=== PATIENT | male | born 1945 | race Caucasian/White ===

== ENCOUNTER 2019-06-07 11:32 | Emergency (ER) | payer BC, MEDICARE ==
[2019-06-07] MEDS ORDERED: ACETAMINOPHEN 1,000 MG/100 ML BTL IVPB ONE (11:58)
--- NOTE | 2019-06-07 12:07 | Emergency Department Record ---
History of Present Illness - General Chief Complaint: Hypertension Stated Complaint: HIGH BLOOD PRESSURE Time Seen by Provider: 06/07/19 11:45 Source: Patient Mode of Arrival: Ambulatory Limitations: No limitations - History of Present Illness Initial Comments: The patient is here due to his blood pressure running high for the last 3 months. He has been unable to see his PCP or Contracting Specialist for it due to both being in [facility]. The patient states for the last few months the BP has been running 220/120 consistently. He also has had an issue with chronic back pain and was scheduled for a procedure with Dr. Recio today but due to his BP being chronically elevated he was sent to the ER for evaluation. The patient denies any symptoms presently and specifically has had no CP, SOB, EMMA, SHARMA, or visual changes. MD Complaint: Other Onset/Timin -: Month(s) History of Same: Yes Improves With: Nothing Worsens With: Nothing - [place] Coma Scale Eye Response: (4) Open spontaneously Motor Response: (6) Obeys commands Verbal Response: (5) Oriented [place] Total: 15 - Related Data Home Medications Medication Instructions Recorded Confirmed Last Taken Alprazolam [Xanax] 1 mg PO DAILY PRN 06/07/19 06/07/19 06/07/19 Atorvastatin Calcium [Lipitor] 40 mg PO DAILY 06/07/19 06/07/19 06/06/19 Cilostazol 100 mg PO DAILY 06/07/19 06/07/19 06/06/19 Fenofibrate,Micronized 134 mg PO DAILY 06/07/19 06/07/19 06/06/19 [Fenofibrate] Ibuprofen 200 mg PO DAILY 06/07/19 06/07/19 06/06/19 Lisinopril 20 mg PO DAILY 06/07/19 06/07/19 06/07/19 Losartan Potassium 50 mg PO BID 06/07/19 06/07/19 06/07/19 Mirabegron [Myrbetriq] 15 mg PO ASDIR 06/07/19 06/07/19 06/06/19 Allergies Allergy/AdvReac Type Severity Reaction Status Date / Time No Known Drug Allergies Allergy Verified 06/07/19 11:46 Travel Screening - Travel/Exposure Within Last 30 Days Have you traveled within the last 30 days?: No - Travel/Exposure Within Last Year Have you traveled outside the [place] 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 Drug Use: Heavy Drug Use Detail:: Marijuana - RESPIRATORY Hx Respiratory Disorders: Yes Hx Asthma: Yes (USES OLD INHALERS SPORADICALLY) - CARDIOVASCULAR Hx Cardio Disorders: Yes Hx Abnormal EKG: Yes Hx Cardiac Cath: Yes Hx Heart Attack: Yes (AGE 51) Hx Hypertension: Yes (RUNS VERY HIGH W PAIN AND WHEN HE SEES THE DR TOLD TO TAKE B/P MEDS DAY OF) Hx Irregular Heartbeat: Yes ([place] HAS PACEMAKER) Hx Coronary Artery Disease: Yes Hx Coronary Stent: Yes (6-7 STENTS LAST ONE 6 YRS AGO) - NEURO Hx Neuro Disorders: Yes 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) - GI Hx GI Disorders: Yes Hx GI Bleed: Yes (HX OF) Hx Ulcer: Yes (HX OF) - Hx Genitourinary Disorders: Yes Hx Bladder Problem: Yes (FREQUENCY URGENCY) Hx Prostate Problems: Yes (BPH) - ENDOCRINE Hx Endocrine Disorders: No - MUSCULOSKELETAL Hx Musculoskeletal Disorders: Yes Hx Arthritis: Yes - PSYCH Hx Psych Problems: Yes Hx Anxiety: Yes - HEMATOLOGY/ONCOLOGY Hx Hematology/Oncology Disorders: Yes Hx Anemia: Yes (HX OF) Hx Blood Transfusions: Yes Hx Blood Transfusion Reaction: No Family Medical History Any Significant Family History?: No Family Hx Comment (NOT TO BE USED IN PLACE OF ITEMS BELOW): UNKNOWN Physical Exam - General General Appearance: Alert, Oriented x3, Cooperative, No acute distress - Head Head exam: Atraumatic, Normocephalic, Normal inspection - Eye Eye exam: Normal appearance, PERRL, EOMI - ENT Throat exam: Normal inspection. negative: Tonsillar erythema, Tonsillar exudate - Neck Neck exam: Normal inspection, Full ROM. negative: Tenderness - Respiratory Respiratory exam: Normal lung sounds bilaterally. negative: Respiratory distress - Cardiovascular Cardiovascular Exam: Regular rate, Normal rhythm, Normal heart sounds - GI/Abdominal GI/Abdominal exam: Soft, Normal bowel sounds. negative: Tenderness - Extremities Extremities exam: Normal inspection, Full ROM, Normal capillary refill. negative: Tenderness - Neurological Neurological exam: Alert. negative: Motor sensory deficit Course Vital Signs 06/07/19 11:35 Temperature 97.6 F Pulse Rate 73 Respiratory 18 Rate Blood Pressure 188/132 Pulse Ox 97 - Reevaluation(s) Reevaluation #1: The patient is doing very well at this time and denies any problems or symptoms. I did discuss the case with the patient's Contracting Specialist LELO Aaron and she did contact Dr. Gaitan who would like the patient started on Norvasc. Dr. Gaitan did call in the prescription for the patient and we will start him on a dose here. 06/07/19 13:14 Reevaluation #2: The patient is doing a lot better at this time. His BP is now much improved at 183/92 so I do believe he is stable for discharge. He does have the Norvasc called into the pharmacy and we will refer him to a Contracting Specialist here at [facility]. 06/07/19 13:37 Medical Decision Making - Data Complexity MDM Data: Labs Ordered and/or Reviewed, EKG Ordered and/or Reviewed - Lab Data Result diagrams: 06/07/19 12:10 06/07/19 12:10 - EKG Data -: EKG Interpreted by Me EKG: No Acute Changes (Atrial paced with no ischemic changes.) Disposition Disposition: Discharge Clinical Impression: HTN (hypertension) Qualifiers: Hypertension type: unspecified Qualified Code(s): I10 - Essential (primary) hypertension Disposition: Home, Self-Care Condition: (2) Stable Instructions: Hypertension (ED) Additional Instructions: Please continue your regular medicines and add the Norvasc as directed. Please see Dr. Grover next week in the Specialty [facility]. Return to the ER for any problems or new issues. Referrals: [facility] Specialty Clinics [Provider Group] Forms: Patient Portal Access Time of Disposition: 13:40 Quality - Quality Measures Quality Measures: N/A - Blood Pressure Screening View Details: Yes Does Patient Have Any of the Following: Active Dx of HTN Blood Pressure Classification: Hypertensive Reading Systolic Measurement: 183 Diastolic Measurement: 92 Screening for High Blood Pressure: Patient Exclusion, Hx of HTN [[id number]]
[2019-06-07 12:22] LABS: ABSOLUTE NEUTROPHIL COUNT 5.51; BASO % 0.3 % (0-6); EOS % 2.1 % (0-6); GRAN % 70.5 % (47-80); HEMATOCRIT 43.5 % (42.0-52.0); HEMOGLOBIN 14.5 gm/dl (14.0-18.0); LYMPH % 17.6 % (16-45); MEAN CELL VOLUME 93.5 fl (81-97); MEAN CORPUSCULAR HEMOGLOBIN 31.2 pg (27-33); MEAN CORPUSCULAR HGB CONC 33.3 g/dl (32-36); MEAN PLATELET VOLUME 9.4 fl (7.4-10.4); MONO % 9.5 % (0-9); PLATELET COUNT 347 K/uL (130-400); RED BLOOD COUNT 4.65 M/uL (4.40-5.70); RED CELL DISTRIBUTION WIDTH 13.3 % (11.5-14.5); WHITE BLOOD COUNT W/O DIFF 7.8 K/uL (4.2-12.2)
[2019-06-07] MEDS ORDERED: LISINOPRIL 20 MG TABLET PO ONE (12:30)
[2019-06-07 12:34] LABS: BLOOD UREA NITROGEN 17 mg/dL (8-23); CREATININE 0.9 mg/dL (0.7-1.2); EST GLOMERULAR FILTRATION RATE > 60 mL/min
[2019-06-07 12:35] LABS: TOTAL PROTEIN 7.2 g/dL (6.6-8.7)
[2019-06-07 12:37] LABS: GLUCOSE,RANDOM 94 mg/dL (74-109)
[2019-06-07 12:39] LABS: ALB/GLOB RATIO 1.4 (1.1-1.8); ALBUMIN 4.2 g/dL (4.0-5.0); ALKALINE PHOSPHATASE 41 U/L (40-129); ALT/SGPT 11 U/L (<41); AST/SGOT 14 U/L (10.0-50.0)
[2019-06-07] MEDS ORDERED: AMLODIPINE BESYLATE 5MG TAB PO SCH (13:15)
[2019-06-07] MEDS ORDERED: AMLODIPINE BESYLATE 5MG TAB PO ONE (13:15)
== END 2019-06-07 14:00 | disposition home or self-care (01) ==
LOC: ER 11:32
DX: I10 Essential (primary) hypertension (principal); I25.2 Old myocardial infarction; Z95.0 Presence of cardiac pacemaker; Z87.891 Personal history of nicotine dependence; Z01.812 Encounter for preprocedural laboratory examination; M54.16 Radiculopathy, lumbar region
CPT/HCPCS: 80053; 85002; 85025; 85610; 85730; 93005; 93010; 96365; 99284

== ENCOUNTER 2019-07-17 07:02 | Day surgery (SDC) | payer BC, MEDICARE ==
--- NOTE | 2019-07-17 06:43 | History and Physical - Ferro ---
CHIEF COMPLAINT/HISTORY OF CHIEF COMPLAINT: This patient presents with a history of intractable lumbar radiculopathy. On 05/09/19 a spinal cord stimulator trial was conducted with 75-85% pain control. Due to the failure of all therapy and the success of the trial, the patient presents for implantation of a permanent system. PAST MEDICAL HISTORY: Hypertension. PAST SURGICAL HISTORY: List to be provided. MEDICATIONS ON ADMISSION: List to be provided. FAMILY/PSYCHOSOCIAL HISTORY: Social history - Caffeine. Family history - Noncontributory. SYSTEMS REVIEW: The patient is appropriate in no acute distress. The remainder of the systems review is positive for glasses and blood pressure. PHYSICAL EXAMINATION: Height and weight are not known. Vital signs - Blood pressure 148/80. HEENT: Within normal limits. LUNGS: Clear. HEART: Rapid and regular. ABDOMEN: Nontender. MUSCULOSKELETAL: Examination of the musculoskeletal system shows diffuse tenderness throughout the lumbar spine. Range of motion produces pain into both hips and legs. Motor and sensory field function is intact. There is no motor or sensory abnormalities. There is no assistive device used for ambulation. NEUROLOGIC: Cranial nerves are intact. IMPRESSION: LUMBAR RADICULOPATHY, ICD-10 CODE M54.16 AND M54.17. PLAN: Due to the failure of conservative therapy and the success of a stimulator trial, the patient presents today for implantation of a permanent system. The procedure will be considered outpatient although an overnight stay will be evaluated. JOB NUMBER: [id number] MTDD
[~2019-07-17 07:02] MED LIST: ACETAMINOPHEN 1,000 MG/100 ML BTL IVPB ONE; CEFAZOLIN 2 Gram 2 GM/50 ML BAG IVPB ONE; FAMOTIDINE 20MG TABLET PO ONE; MECLIZINE 25 MG TABLET PO ONE; METOCLOPRAMIDE 10 MG TABLET PO ONE
[2019-07-17] MEDS ORDERED: PROPOFOL 10 MG/ML VIAL IV ONE (07:03)
[2019-07-17] MEDS ORDERED: LIDOCAINE 2% MDV (20MG/ML) 20ML VIAL IV ONE (07:03)
[2019-07-17] MEDS ORDERED: MIDAZOLAM HCL 2MG/2ML VIAL IV ONE (07:03)
[2019-07-17] MEDS ORDERED: FENTANYL PF 100MCG/2ML VIAL IV ONE (07:03)
[2019-07-17] MEDS ORDERED: HYDROMORPHONE HCL 2 MG/ML VIAL IV ONE (07:03)
[2019-07-17] MEDS ORDERED: RINGERS SOLUTION,LACTATED 1,000 ML IV ONE ×2 (07:40→09:45)
[2019-07-17] MEDS ORDERED: LIDOCAINE 1% W/EPI 1:100,000 MDV 20 ML VIAL SQ ONE ×2 (09:05)
[2019-07-17] MEDS ORDERED: BUPIVACAINE 0.5% W/EPI MPF 30 ML VIAL SQ ONE ×2 (09:06)
[2019-07-17] MEDS ORDERED: CEFAZOLIN 1G VIAL IR ONE (09:06)
--- NOTE | 2019-07-18 06:21 | RADIOLOGY REPORT ---
EXAMINATION: Thoracolumbar Spine Single View EXAM DATE: 07/17/2019 10:18 AM TECHNIQUE: Lateral view INDICATION: S/P SCS IMPLANT, LEADS AND GENERATOR COMPARISON: None available ENCOUNTER: Initial IMPRESSION: Spinal stimulator leads terminate over the level of the midthoracic spine. Left chest pacing device i s also visualized. No evidence of acute fracture on this single frontal image centered at the thoracolumbar spine juncti on. Dictated by: Almaz Shetty DO on 07/18/2019 6:18 AM. .
--- NOTE | 2019-07-18 08:41 | Operative Note - Ferro ---
DATE OF SURGERY: 07/17/2019 PREOPERATIVE DIAGNOSIS: LUMBAR RADICULOPATHY, ICD-10 CODE M54.16 AND M54.17. OPERATION: 1. FLUOROSCOPICALLY GUIDED EPIDURAL ACCESS LEFT T11-T12, PLACEMENT OF SPINAL CORD STIMULATOR LEAD 1 [employer] 16, 6-ELECTRODES POSITIONED LEFT T7. 2. FLUOROSCOPICALLY GUIDED EPIDURAL ACCESS LEFT T12-L1, PLACEMENT OF SPINAL CORD STIMULATOR LEAD 2 [employer] 16, 6-ELECTRODES POSITIONED RIGHT T7. 3. COMPLEX PROGRAMMING OF LEAD 1 OVER TWENTY MINUTES FOLLOWED BY COMPLEX PROGRAMMING LEAD 2 OVER TWENTY MINUTES. 4. INCISION, SUBCUTANEOUS DISSECTION, ANCHORING OF LEAD 1 AND LEAD 2 TO THE SUPRASPINOUS FASCIA WITH A [employer] LOCKING ANCHOR. 5. INCISION, SUBCUTANEOUS DISSECTION, CREATION OF SUBCUTANEOUS POUCH LEFT FLANK AT A SITE PICKED BY THE PATIENT FOR THE GENERATOR. INCISION SUBCUTANEOUS DISSECTION, CREATION OF SUBCUTANEOUS POUCH APPROPRIATE GENERATOR [employer] PROGRAMMABLE RECHARGEABLE. 6. TUNNELLING BETWEEN MIDLINE POUCH AND GENERATOR POUCH, PLACEMENT OF EXTERNAL PORTION OF LEAD 1 AND LEAD 2 INTO GENERATOR POUCH. EACH LEAD INTERFACED WITH GENERATOR. 7. PLACEMENT OF GENERATOR INTO POUCH, PLACEMENT OF LEADS INTO POUCH, CLOSURE OF BOTH INCISIONS WITH STRATAFIX SUTURE 2-0 FASCIA AND 3-0 SKIN. DERMABOND CLOSURE. 8. COMPLEX RECOVERY ROOM PROGRAMMING INTERNAL GENERATOR HOME USE TWO STIMULATORS RECOVERY ROOM TWENTY MINUTES. SURGEON: Garland Recio D.O. ANESTHESIA PROVIDER: Alfonzo Mckeon CRNA INDICATION: This patient presents with history of intractable lumbar radiculopathy. Due to failure of all therapies, a stimulator trial was conducted with 75+% pain control. Due to the failure of all therapies and the success of the trial, the patient presents today for implantation of a permanent system. PROCEDURE: Intravenous line, vital sign monitoring, IV sedation, prepped and draped, sterile technique. The patient was positioned prone. Sterile prep. Sterile technique. Consistent with the trial, the epidural interspace on the left T11-T12 and T12-L1 were both marked and infiltrated with a local. Using a standard epidural needle with loss of resistance, the space was accessed, atraumatic, no blood, no CSF. At T11-T12 the spinal cord stimulator Lead 1 a [employer] 16, 6-electrodes positioned left of midline at T7. With the access at T12-L1 spinal cord stimulator Lead 2 [employer] 16, 6-electrodes positioned right of T7. Complex programming of Lead 1 over twenty minutes followed by complex programming of Lead 2 over twenty minutes resulting in complete pattern of stimulation across the back and into the legs, patient indicating we hit all of the areas of the pain. The skin below both needles was infiltrated with local. After the patient was questioned he indicated we hit all of the areas, the question was repeated with the same response. He was then re-sedated. After the skin was infiltrated an incision was made and subcutaneous dissection was conducted to the supraspinous fascia. Each of the leads was then anchored to the supraspinous fascia with a [employer] locking anchor and nonabsorbable suture. At the left flank which was the site picked by the patient for the generator the skin was infiltrated, an incision was made and subcutaneous dissection was conducted to form a pouch of suitable size and depth for the generator, a [employer] programmable rechargeable WaveWriter. Once the pouch was formed a tunnelling tool was used to carry the leads into the pouch and then each lead was interfaced with the generator. Antibiotic irrigation, Bovie for hemostasis. The generator was placed into the pouch, leads were placed into their own pouch, and then both incisions were closed using Stratafix suture 2-0 fascia and 3-0 skin. A Dermabond closure was then used to approximate the edges of both wounds. He was then transported to the Recovery Room stable once the Dermabond dressing had been applied. He was showing no unusual side effects. No unusual pain. He had full functionality of the extremities. When fully awake and alert, complex programming of the generator in the Recovery Room over twenty minutes performed reestablishing stimulation pain control of the appropriate areas. The patient and were instructed on the use of the system, provided information on error messaging, and then prepared for discharge. DISCHARGE INSTRUCTIONS: 1. The sites are to remain clean and dry. No showering or bathing in any way that would disrupt the dressings, if it happens contact the clinic. 2. Standard medications will be resumed including the antibiotic Levaquin 500 mg once a day for fourteen days. 3. Office to contact the patient in 12-24 hours to set up a time in 7-10 days for us to evaluate the sites. Until then he is to keep his activities controlled, limit bend, lift, push and pull. He can shower, but not sit in water with the Dermabond. All other instructions were provided. Numbers to contact if problems given. He had been provided a script for [place] to manage post incisional pain which will be re-evaluated with his evaluation. All other instructions provided. The antibiotic has been called. JOB NUMBER: [id number] MTDD
== END 2019-07-17 10:57 | disposition home or self-care (01) ==
LOC: SUR 07:02
PROVIDERS: ATTEND Pain Medicine Interventional Pain Medicine
DX: M54.16 Radiculopathy, lumbar region (principal); M54.17 Radiculopathy, lumbosacral region; I10 Essential (primary) hypertension; E78.00 Pure hypercholesterolemia, unspecified; R35.0 Frequency of micturition; Z95.5 Presence of coronary angioplasty implant and graft; Z95.0 Presence of cardiac pacemaker
CPT/HCPCS: 63650; 63685; 01936; 95972; 72020; C1883; C1820; J3010; J1170; J0690; J7120